=== PATIENT | female | born 1965 | race Caucasian/White ===

== ENCOUNTER 2021-01-14 11:37 | Emergency (ER) | payer OTHER ==
[~2021-01-14] VITALS: Ht 154.9 cm; Wt 70.3 kg
== END 2021-01-14 16:10 | disposition home or self-care (01) ==
LOC: ER 11:37
DX: L56.8 Other specified acute skin changes due to ultraviolet radiation (principal); X32.XXXA Exposure to sunlight, initial encounter; Y93.89 Activity, other specified; Y92.89 Other specified places as the place of occurrence of the external cause; Y99.8 Other external cause status